=== PATIENT | female | born 1940 | race Caucasian/White ===

== ENCOUNTER 2019-04-22 14:19 | Inpatient (IN) ==
--- NOTE | 2019-04-22 17:56 | Diag Imaging Result Doc PS360 ---
EXAM: CHEST-PORTABLE HISTORY: anemia TECHNIQUE: Single view COMPARISON: None. FINDINGS: The lungs are well expanded. The heart is not enlarged. The vessels are not distended. There are no infiltrates. No effusion identified. There is a left granuloma. IMPRESSION: Negative exam. Electronically signed by Vitor Blount 04/22/2019 5:53 PM
[2019-04-22] MEDS ORDERED: ULTRAM PO PRN (17:57)
[2019-04-22 18:24] LABS: BASO# 0.04 X1000 (0.0-0.2); BASO% 0.8 % (0.0-0.8); EOS# 0.29 X1000 (0.0-0.7); EOS% 5.7 % (0.0-10.0); HEMATOCRIT 26.2 % (37.0-47.0); HEMOGLOBIN 7.3 g/dL (12.0-16.0); LYMPH% 29.2 % (20.5-51.1); MCH 16.8 PG (27-31); MCHC 27.9 g/dL (33-37); MCV 60.2 FL (81-99); MONO# 0.49 X1000 (0.11-0.59); MONO% 9.6 % (1.7-9.3); MPV 9.6 FL (7.4-10.4); NEUT# 2.81 X1000 (1.4-6.5); NEUT% 54.7 % (42.2-75.2); PLT 281 X1000 (130-400); RBC 4.35 XMIL (4.2-5.4); RDW 20.9 % (11.5-14.5); WBC 5.13 X1000 (4.8-10.8)
[2019-04-22 18:49] LABS: EOS 10 % (1-10); HYPOCHROM 2+; LARGE PLATELETS OCCASIONAL; LYMPHS 23 % (21-51); MICROCYTOSIS 1+; MONO 3 % (1-9); SEGS 62 % (42-75)
[2019-04-22 18:50] LABS: POIKILOCYTOSIS OCCASIONAL
[2019-04-22 18:57] LABS: AGAP 9; ALB/GLOB RATIO 1.7; ALBUMIN 3.8 g/dL (3.5-5.0); ALKALINE PHOSPHATASE 84 U/L (32-104); BUN 12 mg/dL (8-22); CALCIUM 8.4 mg/dL (8.8-10.2); CHLORIDE 108 mmol/L (98-107); COSMO 287; CREATININE 0.6 mg/dL (0.5-0.9); ESTIMATED GFR > 60; GLUCOSE 108 mg/dL (70-104); GOT 19 U/L (10-30); GPT 12 U/L (10-36); POTASSIUM 4.3 mmol/L (3.5-5.1); SODIUM 144 mmol/L (136-145); TCO2 27 mmol/L (25-35); TOTAL BILIRUBIN < 0.15 mg/dL (0.20-1.00)
--- NOTE | 2019-04-22 20:04 | EKG Report ---
Test Performed on : 04/22/2019 6:09:16 PM Test Reason : anemia Blood Pressure : / mmHG Vent. Rate : 058 BPM Atrial Rate : 058 BPM P-R Int : 174 ms QRS Dur : 080 ms QT Int : 440 ms P-R-T Axes : 041 020 017 degrees QTc Int : 431 ms Sinus bradycardia. with premature supraventricular complexes. Low voltage QRS Borderline ECG No previous ECGs available Unconfirmed Result
[2019-04-23] MEDS: SYNTHROID PO SCH (06:13)
--- NOTE | 2019-04-23 09:52 | PROGRESS NOTE ---
DATE: 04/23/2019 SUBJECTIVE: Ms Gaines has history of H pylori infection and has a history of allergy to metronidazole, sulfa drugs and penicillin also. She was treated with a special antibiotic prescribed by Dr Hawkl she is severely anemic, hemoglobin is down to 7.3. The [facility] are in favor of severe iron deficiency anemia. B12 and folic acid levels are normal. Stool has been ordered for occult blood and we will have a hematology consult. I am going to wait for transfusion till Dr. Maza checks her and we will also ask for Dr. Engel to see. -4 cc: Gutierrez Meléndez MD MTDD
[2019-04-23] MEDS: ASPIRIN EC PO SCH ×2 (10:27→15:12)
[2019-04-23] MEDS: DEXILANT PO SCH (10:27)
[2019-04-23] MEDS: PRINIVIL PO SCH (10:27)
[2019-04-23] MEDS: CRESTOR PO SCH (10:28)
[2019-04-23] MEDS: CELEXA PO SCH (10:28)
--- NOTE | 2019-04-23 11:31 | HISTORY AND PHYSICAL ---
HISTORY OF PRESENT ILLNESS: Ms. Gaines is a 78-year-old white female who is feeling extremely weak and tired. She gets short of breath. She was treated in [place] by a polystyrene bead molder for coronary artery disease, and she had a heart attack. She was found to be very anemic. Hemoglobin when we did it was 7.8, and it came down to 7.3. She is extremely anemic, iron- deficiency anemia. There is no apparent history of GI bleeding. However, she has a strong history of Helicobacter pylori infection, which was treated with antibiotic by Dr. Hawk, and that particular antibiotic, which she finished 2 weeks ago, is known to have a side effect for anemia, and the patient is worried about it. PAST SURGICAL HISTORY: History of breast reduction and lumpectomy from both breasts. She also had vaginal hysterectomy. CURRENT MEDICATIONS: Include Dexilant, citalopram, Celexa, aspirin, levothyroxine, lisinopril, Crestor, and Ultram. REVIEW OF SYSTEMS: She denies having any gastric symptoms at the present time. No nausea, vomiting, abdominal pain, hematemesis, or melena. She has some shortness of breath without chest pain. PHYSICAL EXAMINATION: GENERAL: The patient is alert and oriented. There is no evidence of lymphadenopathy, thyroid enlargement, pedal edema, calf tenderness, ] thyroid enlargement, cyanosis or clubbing. There is anemia with pallor of skin and mucous membrane. VITAL SIGNS: Temperature normal, pulse 80 per minute, respiratory rate 20 per minute, blood pressure 130/80. HEENT: Head normocephalic. Pupils PERRLA. Fundus examination not done. ENT examination unremarkable. NECK: Supple. JVP normal. BREAST: Not done. CHEST: Normal inspection. LUNGS: Clear on auscultation. PMI in the normal position. HEART: Heart sounds normal. No murmur, gallop, or rub noted. ABDOMEN: Nondistended. Hernial orifices normal. No guarding, rigidity, free fluid, masses, or organomegaly. Bowel sounds normal. RECTAL: Deferred. CENTRAL NERVOUS SYSTEM: Higher functions normal. Cranial nerves normal. Motor and sensory system examination unremarkable. Deep tendon reflexes normal. Plantars downgoing. Skull and spine examination unremarkable. No cerebellar signs or signs of meningeal irritation. LOCOMOTOR/SKIN: Unremarkable. ALLERGIES: The patient is allergic to Flagyl, penicillin, sulfa drugs, codeine, and meperidine. IMPRESSION: 1. Severe anemia. 2. History of coronary artery disease. PLAN: Plan to keep her on telemetry at the present time, and get a GI consult as well as Hematology consult with Dr. Maza, and transfuse 2 units of packed RBCs as soon as possible. cc: Gutierrez Meléndez MD MTDD
[2019-04-23 11:37] LABS: IRON SATURATION 4 %; TIBC 355 ug/dL; TOTAL IRON 14 ug/dL (49-151); UNBOUND IRON 341 ug/dL (112-346)
[2019-04-23] MEDS ORDERED: VENOFER 300 MG in NS 250 ML IV SCH (14:15)
[2019-04-23 15:57] LABS: URINE SOURCE CLEAN CATCH
[2019-04-23 16:11] LABS: BILIRUBIN URINE NEGATIVE (NEGATIVE); BLOOD URINE NEGATIVE (NEGATIVE); COLOR YELLOW; GLUCOSE URINE NEGATIVE (NEGATIVE); KETONE URINE NEGATIVE (NEGATIVE); LEUKOCYTES URINE NEGATIVE (NEGATIVE); NITRITE URINE NEGATIVE (NEGATIVE); PROTEIN URINE NEGATIVE (NEGATIVE); SP GRAVITY URINE 1.016; TURBIDITY URINE HAZY (CLEAR); UROBILINOGEN URINE NORMAL (NORMAL)
[2019-04-23 16:12] LABS: UR EPITHELIAL CELLS <10 /HPF (<10); URINE BACTERIA NEGATIVE /HPF; URINE RBC <10 /HPF (<10); URINE WBC <10 /HPF (<10)
[2019-04-23] MEDS: VENOFER 300 MG in NS 250 ML IV SCH (16:34)
--- NOTE | 2019-04-23 19:29 | GASTROENTEROLOGY CONSULTATION ---
DATE: 04/23/2019 REASON FOR CONSULT: Anemia. HISTORY OF PRESENT ILLNESS: Ms. Gaines is a 78-year-old female who was admitted to the hospital with complaints of weakness, fatigue and shortness of breath. The patient has been seen by a commutator operator in [place] for coronary artery disease and heart attack and it was found out that the patient was anemic. Her hemoglobin on admission was 7.3 and hematocrit was 26.2. She has denied any nausea, vomiting, diarrhea, or constipation, but patient did say that she has hemorrhoids, so we did a rectal exam and did not find any active bleeding. The patient said that she sees Dr. Engel for her stomach. Dr. Thorne had done the EGD and colonoscopy in December and the findings were hiatal hernia, diverticulosis, and she was positive for H. pylori. The patient is allergic to many drugs. The treatment for H pylori that was being given at the clinic could not be given because of her allergies, so she was sent to Dr. Hawk, the infectious doctor, and patient said that she was given the antibiotic Alinia along with doxycycline and Levaquin. The patient had completed her 14-day treatment and went back to the clinic to do an H pylori breath test and her H pylori was negative. The patient has denied noticing any blood in the stools, but her blood count has been extremely low. PAST MEDICAL HISTORY: Hypertension, heart attack, CAD, hypothyroid, hyperlipidemia. PAST SURGERIES: Breast reduction, vaginal hysterectomy, cyst from the breast removed. SOCIAL HISTORY: The patient is . She has 1 daughter. She drinks alcohol occasionally, a glass of wine, but has denied smoking or illicit drugs. FAMILY HISTORY: No significant GI malignancies. HOME MEDICATIONS: [id number] 1 capsule, citalopram 20 mg, Dexilant 60 mg, lisinopril 5 mg, Crestor 20 mg, aspirin 81 mg, levothyroxine 112 mcg. REVIEW OF SYSTEMS: As per HPI. Otherwise, 12 point review of system is negative. ALLERGIES: The patient is allergies to codeine, metronidazole, NSAIDs, penicillin, sulfa. PHYSICAL EXAMINATION: Vital Signs: Temperature 98.8 degrees, pulse 78, respirations 16, blood pressure 130/76, oxygen saturation 96% on room air. The patient's weight is 168 pounds, BMI 33.9 kg/m2. General: Patient is alert, oriented x3, and in no acute distress. HEENT: Pale conjunctivae. No icterus. PERRL. Neck: Supple. Lungs: Clear to auscultation in anterior slaughter. Cardiovascular: Regular rate and rhythm. Abdomen: Soft, nontender, nondistended. Active bowel sounds heard in all 4 quadrants. Extremities: No clubbing. No cyanosis. No edema. 2+ pedal pulses present bilaterally. Neurologic: She is alert, oriented x3. Nonfocal. Cranial nerves 2-12 grossly intact. LABORATORY DATA: WBC 5.13, RBC 4.35, hemoglobin 7.3, hematocrit 26.2, platelet count is 281,000. Sodium 144, potassium 4.3, chloride 108, carbon dioxide is 27, anion gap 9, BUN 12, creatinine 0.6, glucose 108, calcium 8.4. Iron 14, TIBC 355, total bilirubin less than 0.15. AST 19, ALT 21, alkaline phos 84, albumin 3.8. Chest x-ray showed negative exam. IMPRESSION AND PLAN: Anemia Hypertension CAD Heart attack PLAN: We plan to send the patient to do an outpatient capsule endoscopy either at [facility] or at [facility] to evaluate the cause of bleeding in the small intestine. Patient's current EGD/Colonoscopy showed hiatal hernia and diverticulosis. We will continue patient with her GI prophylaxis Dexilant. Will transfuse PRCB's if her H & H continues to drop. We will continue to monitor the patient's CBCs, BMPs, and follow the plan of care per primary care physician. This plan was discussed with Dr. Thorne. Thank you for your consult and please call us for any further questions or concerns. Dictated by JESU Thorne for Roger Thorne MD cc: Gutierrez Meléndez MD Physician Attestation I have seen and examined the patient. I have discussed and reviewed the the note by Ruth Ann NAILS and agree with findings and plan as documented. Patient has symptomatic PURA with recent EGD/colonoscopy showing hiatal hernia, diverticulosis. No overt bleeding. Recommend transfusion to 7-8 and outpatient capsule endoscopy. Iron replacement therapy. Avoid blood thinners/NSAIDs. MTDD
[2019-04-24] MEDS: SYNTHROID PO SCH (06:24)
[2019-04-24] MEDS: DEXILANT PO SCH (11:25)
[2019-04-24] MEDS: VENOFER 300 MG in NS 250 ML IV SCH (11:25)
[2019-04-24] MEDS: CELEXA PO SCH (11:25)
[2019-04-24] MEDS: CRESTOR PO SCH (11:25)
[2019-04-24] MEDS: PRINIVIL PO SCH (11:25)
[2019-04-24] MEDS: ASPIRIN EC PO SCH (11:28)
[2019-04-24] MEDS: METAMUCIL PO SCH (11:30)
--- NOTE | 2019-04-24 15:53 | PROGRESS NOTE ---
DATE: 04/24/2019 Ms. Kessler had some chest pain. Her repeat CBC shows hemoglobin 7.3. Stool is negative for occult blood. GI consult mentioned about small intestinal endoscopy with the camera's help. She received iron transfusion yesterday. I am going to check the CBC again. She had evidence of some chest discomfort last night. We will also check the echocardiogram as she has history of coronary artery disease. -7 cc: Gutierrez Meléndez MD
--- NOTE | 2019-04-24 17:03 | GASTROENTEROLOGY PROGRESS NOTE ---
DATE: 04/24/2019 SUBJECTIVE: Ms. Gaines is a 78-year-old female, was sitting in bed. Denied any nausea, vomiting, abdominal pain, or noticing any blood in the stools. Patient did c/o of chest pain last night and this morning, she said it was worse when she coughs. OBJECTIVE: Vital Signs: Temperature 97.9 degrees, pulse 60, respirations 16, blood pressure 156/66, oxygen saturation 95% on room air. Her weight is 168 pounds. BMI is 33.9 kg/m2. General: The patient is alert, oriented x3, and in no acute distress. HEENT: Pale conjunctivae, no icterus. PERRL. Neck: Supple. Lungs: Clear to auscultation in the anterior slaughter. Cardiovascular: Regular rate and rhythm. Abdomen: Soft, nontender, nondistended. Active bowel sounds heard in all 4 quadrants. Extremities: No clubbing, no cyanosis, no edema. There are 2+ pedal pulses present bilaterally. Neurologic: She is alert, oriented x3. LABORATORY DATA: WBCs is 5.13, RBC 4.35, hemoglobin 7.3, hematocrit 26.2, platelet count is 281. Sodium 144, potassium 4.3, chloride 108, carbon dioxide is 27, anion gap 9. BUN 12, creatinine 0.6, glucose 108, calcium 8.4. Iron 14, TIBC 355. Urinalysis was negative. Occult blood was positive. IMPRESSION AND PLAN: Anemia Hiatal Hernia Diverticulosis CAD GERD Heart Attack PLAN: Patient's current EGD/Colonoscopy showed hiatal hernia and diverticulosis. The patient is on the GI prophylaxis and GERD management with Dexilant. Patient received iron infusion today per PCP. We have started patient on Metamucil for her diverticulosis. Advised patient to avoid foods with excessive nuts, seeds, or corn and have a high fiber diet. We will schedule the patient for an outpatient capsule endoscopy with Dr. Hutchinson in [place] to look into the small intestine for any bleeding. Advised patient to f/o as an outpatient once she is discharged in 4 to 6 weeks. We will continue to monitor patient's CBC, BMP and follow the plan of care per PCP. This plan was discussed with Dr. Duckworth. Please call us for any further questions or concerns. Dictated by JESU Thorne for MD Arnaldo Martinez#: [id number] cc: MD Gutierrez Martinez MD I have seen and examined the patient myself. I agree with the above plan of care. I have discussed the above with the patient and all questions were answered. Please call us with any further questions or concerns. [facility]
--- NOTE | 2019-04-24 18:29 | HEMO/ONC CONSULTATION ---
DATE: 04/24/2019 ADMITTING PHYSICIAN: Gutierrez Meléndez MD REQUESTING PHYSICIAN: Gutierrez Meléndez MD We appreciate this consult. CHIEF COMPLAINT: Anemia. HISTORY OF PRESENT ILLNESS: Ms. Adwoa Gaines is a pleasant 78-year-old female with a medical history of coronary artery disease status post myocardial infarction and anemia. The patient presented to [facility] Emergency Department secondary to profound weakness and fatigue. She was found to be profoundly anemic with a hemoglobin of 7.8 and 7.3 subsequently. The patient has a recent history of EGD and colonoscopy. She was found to have H. pylori infection and was placed on eradication therapy. No other source of GI bleeding was observed. The patient denies recent nausea or vomiting. She denies melena or hematochezia. She states that she has been mildly anemic most of her life. We are consulted secondary to anemia. PAST MEDICAL HISTORY: 1. Coronary artery disease. 2. Myocardial infarction. 3. Anemia. PAST SURGICAL HISTORY: 1. Breast reduction. 2. Lumpectomy, bilateral breasts. 3. Vaginal hysterectomy. SOCIAL HISTORY: The patient does not use tobacco, alcohol, or illicit drugs. FAMILY HISTORY: Negative for any hematologic or oncologic disease. MEDICATIONS ON ADMISSION: 1. Dexilant. 2. Citalopram. 3. Celexa. 4. Aspirin. 5. Levothyroxine. 6. Lisinopril. 7. Crestor. 8. Ultram. ALLERGIES: The patient has no known drug allergies. REVIEW OF SYSTEMS: A 14 point review of systems was obtained and is negative except for mentioned in HPI. PHYSICAL EXAMINATION: Ms Gaines is a pleasant 78-year-old female, lying supine in bed in no immediate distress.Vital Signs: Temperature 98.4 degrees, blood pressure 108/68, heart rate 59, respirations 18, O2 saturation 96% on room air. HEENT: Normocephalic, atraumatic. Mucous membranes are pale and moist. Sclerae are anicteric. Extraocular movements intact. Neck is supple. Lungs are clear to auscultation bilaterally. Chest expansion is equal bilaterally. Cardiovascular: S1, S2 is heard without murmur, rub, or gallop. Abdomen is nondistended. Extremities: No clubbing or cyanosis. The patient does have trace bilateral lower extremity edema. Dermatologic: No rashes, bruises, or lesions. Neurologic: The patient is awake, alert, and oriented x3 and has no focal deficits. LABORATORY DATA: Hemoglobin is 7.3, hematocrit 26.8, white blood cell count of 5.13, platelets 281,000. Sodium 144, potassium 4.3, chloride 108, CO2 is 27, BUN 12, creatinine 0.6, and glucose is 108. B12 is 602 and folate is 29.4. ASSESSMENT AND PLAN: 1. Severe anemia with recent esophagogastroduodenoscopy and colonoscopy revealing only Helicobacter pylori on biopsy from esophagogastroduodenoscopy. The patient is status post eradication therapy. Gastroenterology has been consulted. We will initiate anemia workup at this time. 2. History of coronary artery disease. Known. We will follow along with you and make further recommendations pending outcomes. The above reflects the history, exam, assessment, and plan of Dr. Up. Dictated by JESU Cook for Rogerio Up MD cc: JESU Cook MD Amit V. Vora, MD
--- NOTE | 2019-04-24 20:22 | ECHO REPORT ---
ORDER DATE: 04/24/2019 INTERPRETING PHYSICIAN: Carlos Enrique Crowell MD ECHOCARDIOGRAPHIC MEASUREMENTS: 1. Interventricular septum 1.1 cm. 2. Left ventricular posterior wall 1.1. 3. Diastolic diameter 3.6. 4. Left atrium 3.9. 5. Aorta 3.1. SUMMARY OF TWO-DIMENSIONAL IMAGIN. Normal left ventricular cavity size. Estimated ejection fraction of 60%. There is diastolic dysfunction. 2. There is left atrial enlargement. 3. Aortic valve leaflets are trileaflet. 4. Mitral valve is normal. 5. Tricuspid valve is normal. 6. Pulmonic valve is normal. Doppler studies reveal: 1. There is no aortic stenosis or regurgitation. 2. There is mild tricuspid regurgitation. 3. Peak velocity across the tricuspid valve was 2.5 m/sec. 4. Pulmonary artery systolic pressure of 35 mmHg. 5. There is trace to mild mitral regurgitation. 6. There is no pericardial effusion or obvious intracardiac mass or thrombus seen. cc: MD Gutierrez Osman MD
[2019-04-25] MEDS: SYNTHROID PO SCH (06:22)
[2019-04-25 07:17] LABS: BASO# 0.05 X1000 (0.0-0.2); BASO% 1.1 % (0.0-0.8); EOS# 0.27 X1000 (0.0-0.7); EOS% 5.9 % (0.0-10.0); HEMATOCRIT 25.4 % (37.0-47.0); HEMOGLOBIN 6.9 g/dL (12.0-16.0); LYMPH# 1.35 X1000 (1.2-3.4); LYMPH% 29.7 % (20.5-51.1); MCH 16.5 PG (27-31); MCHC 27.2 g/dL (33-37); MCV 60.9 FL (81-99); MONO# 0.54 X1000 (0.11-0.59); MONO% 11.9 % (1.7-9.3); MPV 10.2 FL (7.4-10.4); NEUT# 2.33 X1000 (1.4-6.5); NEUT% 51.4 % (42.2-75.2); PLT 276 X1000 (130-400); RBC 4.17 XMIL (4.2-5.4); WBC 4.54 X1000 (4.8-10.8)
[2019-04-25] MEDS: DEXILANT PO SCH (10:47)
[2019-04-25] MEDS: VENOFER 300 MG in NS 250 ML IV SCH (10:47)
[2019-04-25] MEDS: CELEXA PO SCH (10:48)
[2019-04-25] MEDS: ASPIRIN EC PO SCH (10:48)
[2019-04-25] MEDS: CRESTOR PO SCH (10:48)
[2019-04-25] MEDS: PRINIVIL PO SCH (10:48)
[2019-04-25] MEDS: METAMUCIL PO SCH (10:48)
[2019-04-25] MEDS ORDERED: NS 500 ML ONE (13:41)
--- NOTE | 2019-04-25 14:06 | PROGRESS NOTE ---
DATE: 04/25/2019 SUBJECTIVE: Ms. Gaines's hemoglobin went down to 6.9, hematocrit 25.4. Her stool is negative for occult blood. TIBC was 355, ferritin level was very low, iron was only 14. She is getting iron transfusion today. We are going to transfuse her 1 unit of packed RBCs. Initially, she wished that she could get her daughter's blood, however, it would take some time and she agreed to get the blood today from here. She needs a video small intestinal endoscopy which will be done at [facility] upon her request. Stool has been negative for occult blood. She has some intermittent periods of confusion. Echocardiogram shows some diastolic dysfunction, 60% of ejection fraction, left atrial enlargement. Overall condition is unchanged. We will continue with the current management on her. We will repeat the CBC tomorrow. -3 cc: Gutierrez Meléndez MD
--- NOTE | 2019-04-25 14:26 | GASTROENTEROLOGY PROGRESS NOTE ---
DATE: 04/25/2019 SUBJECTIVE: Ms. Lopezp up and ready to go to the bathroom to brush her teeth. She denies any nausea, vomiting, abdominal pain, diarrhea, or bloody stool. OBJECTIVE: Vital Signs: Temperature 98.3 degrees, pulse 50, respirations 18, blood pressure 138/72, and oxygen saturation 95% on room air. Patient's weight is 168 pounds. BMI is 33.9 kg/m2. General: She is alert and oriented x3 in no acute distress. HEENT: Pale conjunctivae. No icterus. PERRL. Neck: Supple. Lungs: Clear to auscultation in the anterior and posterior slaughter. Cardiovascular: Patient is bradycardic. Abdomen: Soft, nontender, and nondistended. Active bowel sounds heard in all 4 quadrants. Extremities: No clubbing, no cyanosis, no edema. Pedal pulses 2+ present bilaterally. LABORATORY DATA: WBC is 4.54, RBC 4.17, hemoglobin 6.9, hematocrit 25.4, and platelet count 276,000. Sodium 144, potassium 4.3, chloride 108, carbon dioxide 27, anion gap 9, BUN 12, creatinine 0.6, glucose 108, calcium 8.4, iron 14, and TIBC 355. An echocardiogram was done yesterday. Her ejection fraction was 16. The patient had complaints of chest pain. Occult blood was positive. IMPRESSION AND PLAN: Anemia Hiatal hernia Diverticulosis CAD GERD Heart attack PLAN: Patient recently had an EGD/Colonoscopy done and it showed she had hiatal hernia and diverticulosis. She is currently on GERD management Dexilant. Patient had received iron infusion yesterday. He H & H is 6.9 and 25.5, it has slightly gone down. We have put an order to type and crossmatch and transfuse 1 unit of blood, recheck her CBC in four hours. Patient had some thoughts regarding blood transfusion. she wanter to have only her daughter's blood. and was hesitant to take any outside blood. I have talked to her PCP, he said he would talk to the patient. The patient is on Metamucil Counselled her on avoiding foods with nuts, seeds, corns and have a high-fiber diet. We will schedule her for an outpatient capsule endoscopy. The patient does not want to go to [place], we will schedule her at [facility]. Advised the patient to follow us up as an outpatient in 4 to 6 weeks. We will continue to monitor her CBC and BMP and follow the plan of care per PCP. If the patient's Hemoglobin drops below 7 after transfusing 1 unit, we will transfuse one more unit. This plan was discussed with Dr. Thorne. Please call us for any further questions or concerns. Dictated by JESU Thorne for Roger Thorne MD cc: Gutierrez Meléndez MD Physician Attestation I have seen and examined the patient. I have discussed and reviewed the the note by Ruth Ann NAILS and agree with findings and plan as documented. Transfuse pRBC today. Trend H/H. Recommend outpatient capsule endoscopy if hgb remain stable. MTDD
[2019-04-25 14:39] LABS: BASO# 0.04 X1000 (0.0-0.2); BASO% 0.8 % (0.0-0.8); EOS# 0.26 X1000 (0.0-0.7); EOS% 5.3 % (0.0-10.0); HEMATOCRIT 26.5 % (37.0-47.0); HEMOGLOBIN 7.3 g/dL (12.0-16.0); IMM GRAN# 0.02 X1000 (0.0-0.04); IMM GRAN% 0.4 % (0.0-0.5); LYMPH# 1.63 X1000 (1.2-3.4); LYMPH% 33.4 % (20.5-51.1); MCH 16.8 PG (27-31); MCHC 27.5 g/dL (33-37); MCV 60.9 FL (81-99); MONO# 0.42 X1000 (0.11-0.59); MONO% 8.6 % (1.7-9.3); NEUT# 2.51 X1000 (1.4-6.5); NEUT% 51.5 % (42.2-75.2); PLT 311 X1000 (130-400); RBC 4.35 XMIL (4.2-5.4); RDW 21.3 % (11.5-14.5); WBC 4.88 X1000 (4.8-10.8)
[2019-04-25 15:11] LABS: BANDS 4 % (0-1); EOS 4 % (1-10); LYMPHS 32 % (21-51); MONO 4 % (1-9); SEGS 54 % (42-75)
[2019-04-25 15:13] LABS: ANISOCYTOSIS 2+; HYPOCHROM 2+
[2019-04-25 15:14] LABS: POIKILOCYTOSIS 2+
[2019-04-25 15:15] LABS: MICROCYTOSIS 3+; TARGET CELLS OCCASIONAL
[2019-04-25 15:16] LABS: LARGE PLATELETS 1+
[2019-04-26] MEDS: SYNTHROID PO SCH (06:35)
[2019-04-26 07:12] LABS: BASO# 0.07 X1000 (0.0-0.2); BASO% 1.2 % (0.0-0.8); EOS# 0.35 X1000 (0.0-0.7); HEMOGLOBIN 8.5 g/dL (12.0-16.0); IMM GRAN# 0.03 X1000 (0.0-0.04); IMM GRAN% 0.5 % (0.0-0.5); LYMPH# 1.51 X1000 (1.2-3.4); LYMPH% 26.1 % (20.5-51.1); MCH 17.9 PG (27-31); MCHC 28.3 g/dL (33-37); MCV 63.3 FL (81-99); MONO# 0.71 X1000 (0.11-0.59); MONO% 12.3 % (1.7-9.3); MPV 10.6 FL (7.4-10.4); NEUT# 3.12 X1000 (1.4-6.5); NEUT% 53.9 % (42.2-75.2); PLT 281 X1000 (130-400); RBC 4.74 XMIL (4.2-5.4); WBC 5.79 X1000 (4.8-10.8)
[2019-04-26 08:03] LABS: ANISOCYTOSIS 1+; BASO 2 % (0-1); EOS 6 % (1-10); HYPOCHROM 1+; LYMPHS 34 % (21-51); POIKILOCYTOSIS 1+; SEGS 58 % (42-75)
[2019-04-26 08:04] LABS: MICROCYTOSIS 3+
[2019-04-26] MEDS: ASPIRIN EC PO SCH (10:49)
[2019-04-26] MEDS: DEXILANT PO SCH (10:50)
[2019-04-26] MEDS: METAMUCIL PO SCH (10:50)
[2019-04-26] MEDS: PRINIVIL PO SCH (10:51)
[2019-04-26] MEDS: CRESTOR PO SCH (10:51)
[2019-04-26] MEDS: CELEXA PO SCH (10:51)
[2019-04-26] MEDS: VENOFER 300 MG in NS 250 ML IV SCH (10:51)
--- NOTE | 2019-04-26 17:29 | PROGRESS NOTE ---
DATE: 04/26/2019 78-year-old white female admitted to the hospital with anemia hypochromic, microcytic, Mentzer index 14.6, RDW is high. MCV is low and patient was received a unit of blood, 1 unit of iron bag yesterday. The patient complains of leg cramps. PAST MEDICAL HISTORY: Reviewed. PAST SURGICAL HISTORY: Reviewed. MEDICINES: Reviewed. ALLERGIES: Codeine PHYSICAL EXAMINATION: Temperature is 98.6 degrees, pulse 72, blood pressure stable.HEENT: Pale looking. No jaundice. Neck: Supple. No lymphadenopathy. Chest: Bilateral air entry. Heart: Sounds are regular. Belly: Soft, nontender. Good bowel sounds. No signs of peritonitis. No obvious neurological deficits. INVESTIGATIONS: White cell count 5.7, hematocrit 30, MCV 63, platelets 281,000 and SPEP was negative. Iron is low and ferritin is low. B12, folate were normal. Stool cultures were negative. ASSESSMENT AND PLAN: 1. Symptomatic anemia with restless legs syndrome and iron deficiency anemia and gastrointestinal workup was negative. EGD and colon show hiatal hernia, diverticulosis, waiting for capsule endoscopy. Patient is getting a unit of iron transfusion today and repeat the CBC in the morning. 2. Continue on Dexilant for hiatal hernia. 3. Hypothyroidism on Synthroid. 4. Hypertension on lisinopril and tramadol for pain and no signs of active GI bleeding noted. LEVEL OF DOCUMENTATION: 35 minutes. cc: MD Gutierrez Lizama MD [facility]
--- NOTE | 2019-04-26 23:05 | GASTROENTEROLOGY PROGRESS NOTE ---
DATE: 04/26/2019 SUBJECTIVE: The patient is resting in bed. She is feeling better. She denies any overt GI bleeding. OBJECTIVE: Temperature is 98 degrees, pulse rate 60, respiratory rate 16, blood pressure 132/70, saturating 98% on room air. Body weight of 168 pounds. BMI 33.9 kg/m2. General appearance: The patient is moderately nourished, lying in bed in no acute distress. HEENT: Pale conjunctivae. No icterus. Neck is supple. Abdomen is protuberant, soft, nontender, nondistended. No guarding.Extremities: No cyanosis or clubbing. Neurologic-wilburn, she is alert, awake, oriented x3. LABORATORY DATA: Hemoglobin and hematocrit are 8.5 and 30, white count of 5.79, platelet count of 281,000. Stool for occult blood was negative. IMPRESSION: 1. Anemia. 2. Hiatal hernia. 3. Diverticulosis. 4. Coronary artery disease. 5. Reflux. 6. Heart attack. 7. Requiring blood transfusion. RECOMMENDATIONS: We will continue watch the patient's hemoglobin and hematocrit. The patient is being referred to [facility] with Dr. Hutchinson for scheduling videocapsule endoscopy. She will continue to be on Dexilant for reflux disease and chronic hiatal hernia. She is receiving iron infusions per the primary care team. She is also to continue with Synthroid for hypothyroidism. We have started her on Metamucil once daily for diverticulosis. She will likely be discharged home if hematocrit stabilizes, to follow with Dr. Hutchinson as an outpatient. The above plan was discussed with the patient and all questions answered. Please call us with any further questions. cc: MD Gutierrez Martinez MD Sammy Becdach, MD
[2019-04-27] MEDS: SYNTHROID PO SCH (06:25)
[2019-04-27 07:36] LABS: AGAP 11; BUN 15 mg/dL (8-22); CHLORIDE 104 mmol/L (98-107); COSMO 280; CREATININE 0.6 mg/dL (0.5-0.9); ESTIMATED GFR > 60; GLUCOSE 95 mg/dL (70-104); POTASSIUM 3.9 mmol/L (3.5-5.1); SODIUM 140 mmol/L (136-145); TCO2 25 mmol/L (25-35)
[2019-04-27 07:38] LABS: BASO# 0.05 X1000 (0.0-0.2); EOS# 0.34 X1000 (0.0-0.7); EOS% 6.5 % (0.0-10.0); HEMATOCRIT 30.7 % (37.0-47.0); HEMOGLOBIN 8.8 g/dL (12.0-16.0); IMM GRAN# 0.03 X1000 (0.0-0.04); IMM GRAN% 0.6 % (0.0-0.5); LYMPH# 1.38 X1000 (1.2-3.4); LYMPH% 26.4 % (20.5-51.1); MCH 18.4 PG (27-31); MCHC 28.7 g/dL (33-37); MCV 64.2 FL (81-99); MONO% 9.6 % (1.7-9.3); NEUT# 2.92 X1000 (1.4-6.5); NEUT% 55.9 % (42.2-75.2); PLT 271 X1000 (130-400); RBC 4.78 XMIL (4.2-5.4); WBC 5.22 X1000 (4.8-10.8)
[2019-04-27] MEDS: PRINIVIL PO SCH (10:39)
[2019-04-27] MEDS: METAMUCIL PO SCH (10:39)
[2019-04-27] MEDS: CRESTOR PO SCH (10:39)
[2019-04-27] MEDS: ASPIRIN EC PO SCH (10:39)
[2019-04-27] MEDS: DEXILANT PO SCH (10:39)
[2019-04-27] MEDS: CELEXA PO SCH (10:39)
--- NOTE | 2019-04-27 12:21 | GASTROENTEROLOGY PROGRESS NOTE ---
DATE: 04/27/2019 SUBJECTIVE: The patient is resting in bed. She is feeling better. She denies any signs of overt GI bleeding. PHYSICAL EXAMINATION: Vital Signs: Temperature 98.5, pulse rate of 51, respiratory rate of 18, blood pressure 124/82, saturating 92% on room air. Body weight of 168 pounds. BMI of 33.9 kg/m2. General Appearance: Moderately built, moderately nourished, lying in bed, in no acute distress. HEENT: Pale conjunctivae. No icterus. Neck: Supple. Abdomen: Soft, nontender, nondistended. No guarding or rebound. Extremities: No cyanosis or clubbing. Neurologic: She is alert, awake, oriented x3. LABS: Her hemoglobin and hematocrit are 8.8 and 30.7, white count of 5.2, platelet count of 271,000. Sodium 140, potassium 3.9, chloride of 104, bicarb 25, anion gap of 11, BUN of 15, creatinine 0.6, glucose of 94, calcium 7.5. Stool for occult blood was negative. IMPRESSION AND PLAN: 1. Anemia, requiring blood transfusions. 2. Hiatal hernia. 3. Diverticulosis. 4. Coronary artery disease. 5. Reflux. 6. History of heart attack. RECOMMENDATIONS: We discussed in great detail about the possible further workup for ongoing anemia. The patient has been wanting to go to [facility] for a video capsule endoscopy and further enteroscopy if needed. She will continue on Dexilant for reflux disease and chronic hiatal hernia. She is receiving iron infusions per the primary care team. She will continue on Synthroid for hypothyroidism. We will keep her on Metamucil for diverticulosis. The patient will need to be referred to [facility] for further workup like video capsule endoscopy and/or enteroscopy. We will mediate that referral. The above plan of care was discussed with the patient and all questions were answered. Please call us with any further questions. cc: MD Gutierrez Martinez MD
[2019-04-27 13:25] LABS: CALCIUM 9.7 mg/dL (8.8-10.2)
--- NOTE | 2019-04-27 15:45 | PROGRESS NOTE ---
DATE: 04/27/2019 SUBJECTIVE: Patient is doing better. No complaints. The patient did receive 1 unit of packed RBCs, 2 bags of iron. EXAM: Vitals: Stable. HEENT: Slightly pale. Physical exam, no change. INVESTIGATIONS: CBC: White cell count 5.2, hematocrit 30.7, platelets 277,000. SMA 7 is normal. ASSESSMENT AND PLAN: 1. Iron deficiency anemia. 2. Occult gastrointestinal bleeding. Waiting for capsule endoscopy. It is confusing to the patient whether the patient needs to go to [facility] or at [facility]. It can be arranged locally with Dr. Franklin. I will defer the arrangements with Dr. Duckworth. Otherwise, patient is stable. There were no symptoms suggestive of celiac disease based on exam. Hemoccult was negative. Dr. Meléndez is going to follow up. Continue present treatment. LEVEL OF DOCUMENTATION: 25 minutes. cc: MD Gutierrez Lizama MD
[2019-04-27] MEDS: VENOFER 300 MG in NS 250 ML IV SCH (15:55)
[2019-04-28 04:17] VITALS: BP 115/45
[2019-04-28] MEDS: SYNTHROID PO SCH (06:01)
[2019-04-28 07:51] LABS: BASO# 0.04 X1000 (0.0-0.2); BASO% 0.9 % (0.0-0.8); EOS% 6.4 % (0.0-10.0); HEMATOCRIT 32.8 % (37.0-47.0); HEMOGLOBIN 9.5 g/dL (12.0-16.0); IMM GRAN# 0.02 X1000 (0.0-0.04); IMM GRAN% 0.4 % (0.0-0.5); LYMPH# 1.31 X1000 (1.2-3.4); LYMPH% 27.9 % (20.5-51.1); MCH 18.8 PG (27-31); MCV 65.1 FL (81-99); MONO# 0.42 X1000 (0.11-0.59); NEUT% 55.4 % (42.2-75.2); PLT 300 X1000 (130-400); RBC 5.04 XMIL (4.2-5.4); WBC 4.69 X1000 (4.8-10.8)
[2019-04-28] MEDS: ASPIRIN EC PO SCH (11:18)
[2019-04-28] MEDS: METAMUCIL PO SCH (11:18)
[2019-04-28] MEDS: VENOFER 300 MG in NS 250 ML IV SCH (11:18)
[2019-04-28] MEDS: CELEXA PO SCH (11:18)
[2019-04-28] MEDS: DEXILANT PO SCH (11:18)
[2019-04-28] MEDS: CRESTOR PO SCH (11:18)
[2019-04-28] MEDS: PRINIVIL PO SCH (11:19)
--- NOTE | 2019-04-28 11:37 | GASTROENTEROLOGY PROGRESS NOTE ---
DATE: 04/28/2019 SUBJECTIVE: Ms. Gaines is a 78-year-old female, sitting in bed, reading a book. She has denied nausea, vomiting, or abdominal pain. She said she had 1 bowel movement, and denied noticing any blood in the stools. OBJECTIVE: Vital Signs: Temperature 97.9 degrees, pulse 53, respirations 18, blood pressure 115/45, oxygen saturation is 90% on room air. The patient's weight is 168 pounds, BMI is 33.9 kg/m2. General: She is alert and oriented x3, and in no acute distress. HEENT: Pale conjunctivae. No icterus. PERRL. Neck: Supple. Lungs: Clear to auscultation in the anterior slaughter. Cardiovascular: The patient is bradycardic. Abdomen: Soft, nontender, nondistended. Active bowel sounds heard in all 4 quadrants. Extremities: No clubbing, no cyanosis, no edema. Pedal pulses 2+ present bilaterally. Neurological: Alert and oriented x3. LABORATORY DATA: WBC is 4.69, RBC is 5.0, hemoglobin 9.5, hematocrit 32.8, platelet count 300,000. Sodium 140, potassium 3.9, chloride 104, carbon dioxide 25, anion gap 11, BUN 15, creatinine 0.6, glucose 95, calcium 9.7. IMPRESSION: Anemia Occult GI Bleed Hiatal Hernia Diverticulosis GERD CAD History of heart attack PLAN: The patient's hemoglobin today was 9.5, hematocrit is 32.5. It has been trending upwards. She has so far received 1 unit of blood, and has been receiving iron infusion per PCP. She is on GI prophylaxis, Dexilant 60 mg daily. For her diverticulosis she is on Metamucil 1 pack daily. We will schedule her for further workup of her anemia at [facility] for a capsule endoscopy and enteroscopy if needed. We will continue to follow the patient's CBC and BMP and follow the plan of care per PCP. This plan was discussed with Dr. Duckworth. Please call us for any further questions or concerns. Dictated by JESU Thorne for Bret Duckworth MD cc: MD Gutierrez Martinez MD I have seen and examined the patient myself. I agree with the above plan of care. I have discussed the above with the patient and all questions were answered. Please call us with any further questions. MTDD
--- NOTE | 2019-04-29 08:24 | PROGRESS NOTE ---
DATE: 04/28/2019 Ms. Gaines is feeling better. Her hemoglobin is up to 9.5. She is feeling stronger. She will be scheduled for a video small intestinal colonoscopy at a later date with [facility]. Will discharge her today. -4 cc: Gutierrez Meléndez MD
--- NOTE | 2019-04-30 04:19 | DISCHARGE SUMMARY ---
ADMISSION DATE: 04/22/2019 DISCHARGE DATE: 04/28/2019 HISTORY: Ms. Gaines who is a 78-year-old white female was admitted with severe anemia. LABORATORY DATA: In the hospital chest x-ray, it was negative exam. EKG had revealed sinus tachycardia, sinus bradycardia, low voltage, borderline EKG. No previous EKG available. Occasional PACs are present. She had a GI and Hematology consult. She recently had an EGD and colonoscopy done by Dr. Engel, hence small intestinal camera study was ordered and it was suggested that she get it in [place]; however, she refused and the arrangements will be made for her to get that at the [facility] by Dr. Thorne. She had an Hematology consultation and she was seen by Dr. Up in place of Dr. Kern, and she had 2 iron infusions. She also had some blood transfusion of 2 units. She felt much better an she was better we decided to send her home. Initial hemoglobin initial hemoglobin was 7.3, it went down to 6.9 and after 2 units of transfusion it was 9.5. At the time of discharge white count was 4.69, the platelet count was 300,000. Chemistry profile was negative with a blood sugar was 108 and 95. Iron was 14, and TIBC was 355, ferritin level was low, protein electrophoresis revealed total proteins of 5.9, albumin 3.68. Alpha 1 was 0.28. Alpha 2 was 0.64. Gamma globulin level was 0.59, which was somewhat low. 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 Folate and B12 levels are normal. Urinalysis was unremarkable. COURSE IN THE HOSPITAL: She was given iron as well as 2 units of transfusion was final discharged. FINAL DIAGNOSIS: Iron deficiency anemia, etiology still undetermined. -8 cc: Gutierrez Meléndez MD
== END 2019-04-28 12:06 | disposition home or self-care (01) | DRG 812 ==
LOC: DIRADM 14:19 → EDIPHOLD 16:50 → 3N 21:29
PROVIDERS: ADMIT Internal Medicine; ATTEND Internal Medicine